=== PATIENT | male | born 1965 | race American Indian/Alaskan Native ===

== ENCOUNTER 2022-03-11 23:02 | Emergency (ER) | payer MEDICARE ==
[2022-03-12 03:35] LABS: Basophils % (Auto) 0.5 % (0.0-1.8); Eosinophils % (Auto) 0.4 % (0.0-4.3); Hematocrit 43.8 % (35.5-45.6); Hemoglobin 14.7 gm/dl (11.8-15.2); Lymphocytes # (Auto) 2.1 K/mm3 (1.2-5.4); Lymphocytes % (Auto) 23.2 % (13.4-35.0); Mean Corpuscular HGB Conc 34 % (32-34); Mean Corpuscular Volume 92 fl (84-94); Monocytes # (Auto) 0.6 K/mm3 (0.0-0.8); Monocytes % (Auto) 6.1 % (0.0-7.3); Platelet Count 279 K/mm3 (140-440); Red Blood Count 4.76 M/mm3 (3.65-5.03); Red Cell Distribution Width 13.8 % (13.2-15.2)
[2022-03-12 03:48] LABS: Alanine Aminotransferase 11 units/L (7-56); Albumin 4.7 g/dL (3.9-5); BUN/Creatinine Ratio 6; Blood Urea Nitrogen 5 mg/dL (9-20); Hemolysis Index 5
[2022-03-12 05:13] LABS: Color,Urine Yellow (Yellow)
[2022-03-12 05:36] LABS: Calcium Oxalate Crystals,Urine FEW; Mucus,Urine 3+ /HPF; RBC,Urine < 1.0 /HPF (0.0-6.0)
--- NOTE | 2022-03-12 08:00 | Emergency Department Report ---
ED Abdominal Pain HPI - General Chief Complaint: Abdominal Pain Stated Complaint: ABD PAIN,VOMITING Source: EMS Mode of arrival: Stretcher Limitations: No Limitations - History of Present Illness Initial Comments: 56-year-old male presents to the ED complaining abdominal pain. Patient was brought in by and was given Zofran 2 mg. Patient states that the pain started after he ate some fried chicken. He states similar pain in the past. Patient states at present time that the pain has resolved and the nausea has resolved. Patient states that he has a history of gallstones. Patient is alert and oriented x3. No acute distress noted. No ill appearance noted. Denies any fever chills at present time. Pain is a 0 out of 10. he denies any chest pain or shortness of breath - Related Data Previous Rx's Medication Instructions Recorded Last Taken Type Ondansetron (Nf) [Zofran TAB] 8 mg PO Q8HR PRN 3 Days #12 tablet 03/12/22 Unknown Rx Allergies Allergy/AdvReac Type Severity Reaction Status Date / Time No Known Allergies Allergy Unverified 03/11/22 23:49 ED Review of Systems ROS: Stated complaint: ABD PAIN,VOMITING Other details as noted in HPI Constitutional: denies: chills, fever Eyes: denies: eye pain, eye discharge, vision change ENT: denies: ear pain, throat pain Respiratory: denies: cough, shortness of breath, wheezing Cardiovascular: denies: chest pain, palpitations Endocrine: no symptoms reported Gastrointestinal: denies: abdominal pain, nausea, diarrhea Genitourinary: denies: urgency, dysuria Musculoskeletal: denies: back pain, joint swelling, arthralgia Skin: denies: rash, lesions Neurological: denies: headache, weakness, paresthesias Psychiatric: denies: anxiety, depression Hematological/Lymphatic: denies: easy bleeding, easy bruising ED Past Medical Hx - Past Medical History Previous Medical History?: Yes Hx Kidney Stones: Yes 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), - Surgical History Past Surgical History?: No - Social History Smoking Status: Never Smoker Substance Use Type: None - Medications Home Medications: Home Medications Medication Instructions Recorded Confirmed Last Taken Type Ondansetron (Nf) [Zofran TAB] 8 mg PO Q8HR PRN 3 Days #12 tablet 03/12/22 Unknown Rx ED Physical Exam - General Limitations: No Limitations General appearance: alert, in no apparent distress - Head Head exam: Present: atraumatic, normocephalic - Eye Eye exam: Present: normal appearance - ENT ENT exam: Present: mucous membranes moist - Neck Neck exam: Present: normal inspection - Respiratory Respiratory exam: Present: normal lung sounds bilaterally. Absent: respiratory distress - Cardiovascular Cardiovascular Exam: Present: regular rate, normal rhythm. Absent: systolic murmur, diastolic murmur, rubs, gallop - GI/Abdominal GI/Abdominal exam: Present: soft, normal bowel sounds - Rectal Rectal exam: Present: deferred - Extremities Exam Extremities exam: Present: normal inspection - Back Exam Back exam: Present: normal inspection - Neurological Exam Neurological exam: Present: alert, oriented X3 - Psychiatric Psychiatric exam: Present: normal affect, normal mood - Skin Skin exam: Present: warm, dry, intact, normal color. Absent: rash ED Course Vital Signs 03/11/22 23:49 Temperature 98.9 F Pulse Rate 88 Respiratory 18 Rate Blood Pressure 120/84 O2 Sat by Pulse 96 Oximetry ED Medical Decision Making - Lab Data Result diagrams: 03/12/22 02:52 03/12/22 02:52 - Medical Decision Making 56-year-old male presents to the ED complaining abdominal pain. Patient was brought in by and was given Zofran 2 mg. Patient states that the pain started after he ate some fried chicken. He states similar pain in the past. Patient states at present time that the pain has resolved and the nausea has resolved. Patient states that he has a history of gallstones. Patient is alert and oriented x3. No acute distress noted. No ill appearance noted. Denies any fever chills at present time. Pain is a 0 out of 10. he denies any chest pain or shortness of breath. Physical examination is unremarkable Rechecked the patient is resting quietly , comfortable and feeling better. I discussed the results of diagnostic study, my clinical impression and the plan for further treatment with the patient. Patient agrees with plan and discharge at this present time. All question addressed. I have given the patient instruction regarding a diagnosis ,expectation ,follow- up and return precaution. I explained to the patient that emergent condition may arise and to return to the ED for new worsen and any new persisting condition. I have explained the importance of following up with the primary care physician or referral physician listed below has instructed. The patient verbalized understanding of discharge instruction. Abnormal Lab Results 03/12/22 03/12/22 03/12/22 02:52 02:52 04:36 WBC 9.1 RBC 4.76 Hgb 14.7 Hct 43.8 MCV 92 MCH 31 MCHC 34 RDW 13.8 Plt Count 279 Lymph % (Auto) 23.2 [place] % (Auto) 6.1 Eos % (Auto) 0.4 Baso % (Auto) 0.5 Lymph # (Auto) 2.1 [place] # (Auto) 0.6 Eos # (Auto) 0.0 Baso # (Auto) 0.0 Seg Neutrophils % 69.8 Seg Neutrophils # 6.4 Sodium 135 L Potassium 4.3 Chloride 99.1 Carbon Dioxide 21 L Anion Gap 19 BUN 5 L Creatinine 0.8 Estimated GFR > 60 BUN/Creatinine Ratio 6 Glucose 103 H Calcium 10.0 Total Bilirubin 0.60 AST 14 ALT 11 Alkaline Phosphatase 101 Total Protein 7.3 Albumin 4.7 Albumin/Globulin Ratio 1.8 Lipase 24 Urine Color Yellow Urine Turbidity Clear Specific [place] (Man) 1.010 Ur Protein (Man) 1+ Ur Ketones (Man) Negative Ur Nitrite (Man) Negative Urine Bilirubin (Man) Negative Leukocyte Esterase (Man) Negative Urine WBC (Auto) 1.0 Urine RBC (Auto) < 1.0 Urine RBC (Manual) Negative Calcium Oxalate Crystal Few Urine Mucus 3+ Critical care attestation.: If time is entered above; I have spent that time in minutes in the direct care of this critically ill patient, excluding procedure time. ED Disposition Clinical Impression: Abdominal pain Qualifiers: Abdominal location: generalized Qualified Code(s): R10.84 - Generalized abdominal pain Nausea and vomiting Qualifiers: Vomiting type: unspecified Qualified Code(s): R11.2 - Nausea with vomiting, unspecified Disposition: 01 HOME / SELF CARE / HOMELESS Is pt being admited?: No Does the pt Need Aspirin: No Condition: Stable Instructions: Abdominal Pain, Adult, [id number], Nausea, Adult, [id number], Cholelithiasis, [id number] Additional Instructions: Take medication as prescribed Return to the ED for any worsening symptom Prescriptions: Ondansetron (Nf) [Zofran TAB] 8 mg PO Q8HR PRN 3 Days #12 tablet PRN Reason: Nausea Referrals: [facility] [Provider Group] - 3-5 Days [facility] [Outside] - 3-5 Days Forms: Work/School Release Form(ED) Time of Disposition: 08:05
[2022-03-12 09:21] VITALS: BP 113/77
== END 2022-03-12 08:28 | disposition home or self-care (01) ==
LOC: ED 23:02
DX: R10.9 Unspecified abdominal pain (principal); R11.2 Nausea with vomiting, unspecified
CPT/HCPCS: 36415; 80053; 81001; 83690; 85025; 99283